=== PATIENT | male | born 1975 | race African-American/Black ===

== ENCOUNTER 2022-03-28 21:35 | Inpatient (IN) ==
[2022-03-28] MEDS ORDERED: ONDANSETRON 4 MG/2 ML VIAL ONE ×2 (21:50→21:57)
[2022-03-28] MEDS ORDERED: MORPHINE 2 MG/1 ML SYRINGE ONE (21:57)
[2022-03-28] MEDS ORDERED: ASPIRIN 325 MG TABLET ONE (21:57)
[2022-03-28] MEDS ORDERED: HEPARIN 5,000 UNIT/1 ML VIAL ONE ×2 (21:58→22:42)
[2022-03-28] MEDS ORDERED: TICAGRELOR 90 MG TABLET ONE (21:58)
[2022-03-28] MEDS ORDERED: HEPARIN 5,000 UNIT/1 ML VIAL IV ONE (21:59)
[2022-03-28] MEDS ORDERED: ASPIRIN 325 MG TABLET PO STA (21:59)
[2022-03-28] MEDS ORDERED: MORPHINE 2 MG/1 ML SYRINGE IV STA (21:59)
[2022-03-28] MEDS ORDERED: NITROGLYCERIN 2% OINT 1 INCH/GM PACK TOP STA (21:59)
[2022-03-28] MEDS ORDERED: TICAGRELOR 90 MG TABLET PO STA ×2 (21:59→23:25)
[2022-03-28] MEDS ORDERED: NITROGLYCERIN 2% OINT 1 INCH/GM PACK TOP ONE (21:59)
[2022-03-28] MEDS ORDERED: ONDANSETRON 4 MG/2 ML VIAL IV STA (21:59)
[2022-03-28] MEDS ORDERED: SODIUM CHLORIDE 0.9% 2,000 ML IV STA (21:59)
[2022-03-28 22:03] LABS: Basophils # 0.1 10*3/uL (0.0-0.2); Basophils % 0.7 % (0.0-0.8); Eosinophils # 0.3 10*3/uL (0.0-0.87); Eosinophils % 4.4 % (0.00-10.9); Hemoglobin 12.3 GM/DL (14.0-18.0); Immature Granulocytes % 0.3 %; Immature Granulocytes Absolute 0.02 #; Lymphocytes # 3.6 10*3/uL (1.4-4.0); Mean Corpuscular HGB Conc 33.2 GM/DL (32-36); Mean Corpuscular Volume 91.1 FL (87-102); Mean Platelet Volume 9.8 FL (9.6-12.0); Monocytes # 0.9 10*3/uL (0.11-0.8); Monocytes % 13.8 % (1.7-12.7); Neutrophils % 28.8 % (38.7-73.9); Platelet Count 292 T/CUMM (130-400); Red Blood Count 4.06 MC/CUMM (3.8-5.5); Red Cell Distribution Width 13.8 % (9.3-17.3); White Blood Count 6.8 T/CUMM (4-12)
[2022-03-28 22:23] LABS: Albumin 3.7 G/DL (3.4-5.0); Bilirubin,Total 0.5 MG/DL (0.20-1.00); Osmolality,Calculated 281.7 MOS/KG (273-304); Potassium 4.2 MMOL/L (3.5-5.1); Total Protein 7.1 G/DL (6.4-8.2)
[2022-03-28] MEDS ORDERED: HEPARIN/NACL 0.9% 2 UNITS/ML 2,000 UNIT/1,000 ML BAG IV ONE (22:25)
[2022-03-28 22:31] LABS: INR 0.9; PT Patient Result 10.3 SECS (10.5-12.0)
[2022-03-28] MEDS ORDERED: fentaNYL 100 MCG/2 ML VIAL ONE (22:32)
[2022-03-28] MEDS ORDERED: MIDAZOLAM 2 MG/2 ML VIAL ONE (22:32)
[2022-03-28 22:35] LABS: Atypical Lymphocytes 2+; Eosinophils 6 % (0-10); Lymphocytes 56 % (20-55); Platelet Estimate Normal; Total Cells Counted 100
[2022-03-28] MEDS ORDERED: GLUCAGON 1 MG VIAL IM PRN ×2 (23:24→23:28)
[2022-03-28] MEDS ORDERED: ATORVASTATIN 40 MG TABLET PO STA (23:27)
[2022-03-28] MEDS ORDERED: DEXTROSE 10% 250 ML BAG IV PRN (23:28)
[2022-03-28] MEDS ORDERED: DEXTROSE 50% 25 GM/50 ML VIAL IV PRN (23:28)
[2022-03-28] MEDS ORDERED: NITROGLYCERIN SL 0.4 MG TABLET SL PRN (23:41)
[2022-03-29] MEDS: ATORVASTATIN 80 MG TABLET PO SCH ×2 (01:11→09:00)
[2022-03-29 05:15] LABS: Basophils % 0.4 % (0.0-0.8); Eosinophils # 0.1 10*3/uL (0.0-0.87); Eosinophils % 1.9 % (0.00-10.9); Hematocrit 33.5 VOL% (42.0-52.0); Hemoglobin 11.3 GM/DL (14.0-18.0); Immature Granulocytes % 0.3 %; Immature Granulocytes Absolute 0.02 #; Lymphocytes % 29.2 % (21.2-54.2); Mean Corpuscular HGB Conc 33.7 GM/DL (32-36); Mean Corpuscular Volume 90.1 FL (87-102); Mean Platelet Volume 9.4 FL (9.6-12.0); Monocytes # 0.6 10*3/uL (0.11-0.8); Monocytes % 9.4 % (1.7-12.7); Neutrophils % 58.8 % (38.7-73.9); Platelet Count 227 T/CUMM (130-400); Red Blood Count 3.72 MC/CUMM (3.8-5.5); Red Cell Distribution Width 13.6 % (9.3-17.3); White Blood Count 6.8 T/CUMM (4-12)
[2022-03-29 05:37] LABS: Calcium 8.9 MG/DL (8.5-10.1); Osmolality,Calculated 280.4 MOS/KG (273-304); Potassium 3.9 MMOL/L (3.5-5.1); Risk Ratio 1.96
[2022-03-29] MEDS: INSULIN REGULAR 100 UNIT/ML SUBCUT SCH ×4 (08:37→20:30)
[2022-03-29] MEDS: TICAGRELOR 90 MG TABLET PO SCH (09:00)
[2022-03-29] MEDS ORDERED: VALSARTAN 80 MG TABLET PO SCH (09:00)
[2022-03-29] MEDS: ASPIRIN EC 81 MG TABLET PO SCH (09:00)
[2022-03-29] MEDS: VALSARTAN 80 MG TABLET PO SCH (09:00)
[2022-03-29] MEDS: carvediloL 6.25 MG TABLET PO SCH ×2 (09:00→20:22)
[2022-03-29] MEDS ORDERED: PROMETHAZINE 25 MG TABLET PO PRN (10:18)
[2022-03-29] MEDS ORDERED: MAGNESIUM SULF RIDER 4 GM/100 ML PREMIX IV PRN (10:18)
[2022-03-29] MEDS ORDERED: hydrALAZINE 20 MG/1 ML VIAL IV PRN (10:18)
[2022-03-29] MEDS ORDERED: SIMETHICONE CHEW 125 MG TABLET PO PRN (10:18)
[2022-03-29] MEDS ORDERED: NICOTINE 21 MG/24 HR PATCH TRANSDERM PRN (10:18)
[2022-03-29] MEDS ORDERED: DOCUSATE SODIUM 100 MG CAPSULE PO PRN (10:18)
[2022-03-29] MEDS ORDERED: ACETAMINOPHEN 325 MG TABLET PO PRN (10:18)
[2022-03-29] MEDS ORDERED: guaiFENesin/DM ER 600-30 MG TABLET PO PRN (10:18)
[2022-03-29] MEDS ORDERED: ALUMINUM/MAGNES/SIMETH MAX STR 30 ML UDCUP PO PRN (10:18)
[2022-03-29] MEDS ORDERED: MAGNESIUM SULF RIDER 2 GM/50 ML PREMIX IV PRN (10:18)
[2022-03-29] MEDS ORDERED: ONDANSETRON 4 MG/2 ML VIAL IV PRN (10:18)
[2022-03-29] MEDS ORDERED: ZALEPLON 5 MG CAPSULE PO PRN (10:18)
[2022-03-29] MEDS ORDERED: diphenhydrAMINE CAP 25 MG CAPSULE PO PRN (10:18)
[2022-03-29 12:57] LABS: Barbiturates Screen,Urine Negative (Negative); Benzodiazepines Screen,Urine Positive (Negative); Cannabinoid Screen,Urine Positive (Negative); Opiate Screen,Urine Positive (Negative); Phencyclidine Screen,Urine Negative (Negative)
[2022-03-29] MEDS: GLIMEPIRIDE 4 MG TABLET PO SCH (17:59)
[2022-03-30 04:54] LABS: Basophils % 0.3 % (0.0-0.8); Eosinophils # 0.1 10*3/uL (0.0-0.87); Eosinophils % 1.9 % (0.00-10.9); Hematocrit 34.2 VOL% (42.0-52.0); Hemoglobin 11.4 GM/DL (14.0-18.0); Immature Granulocytes % 0.3 %; Immature Granulocytes Absolute 0.02 #; Lymphocytes # 2.6 10*3/uL (1.4-4.0); Lymphocytes % 40.2 % (21.2-54.2); Mean Corpuscular HGB Conc 33.3 GM/DL (32-36); Mean Corpuscular Volume 89.8 FL (87-102); Mean Platelet Volume 9.6 FL (9.6-12.0); Monocytes # 0.7 10*3/uL (0.11-0.8); Monocytes % 11.3 % (1.7-12.7); Platelet Count 247 T/CUMM (130-400); Red Blood Count 3.81 MC/CUMM (3.8-5.5); Red Cell Distribution Width 13.7 % (9.3-17.3); White Blood Count 6.5 T/CUMM (4-12)
[2022-03-30 05:15] LABS: Eosinophils 2 % (0-10); Lymphocytes 42 % (20-55); Platelet Estimate Adequate; Total Cells Counted 100
[2022-03-30 05:29] LABS: Alanine Aminotransferase 38 U/L (16-61); Albumin 3.1 G/DL (3.4-5.0); Alkaline Phosphatase 74 U/L (45-117); Aspartate Amino Transferase 44 U/L (0-37); Blood Urea Nitrogen 12 MG/DL (7-18); Calcium 8.5 MG/DL (8.5-10.1); Carbon Dioxide 25 MMOL/L (21-32); Chloride 106 MMOL/L (98-107); Glucose 118 MG/DL (74-106); Osmolality,Calculated 279.4 MOS/KG (273-304); Potassium 3.3 MMOL/L (3.5-5.1); Sodium 140 MMOL/L (136-145); Total Protein 6.7 G/DL (6.4-8.2)
[2022-03-30] MEDS: VALSARTAN 80 MG TABLET PO SCH (08:43)
[2022-03-30] MEDS: GLIMEPIRIDE 4 MG TABLET PO SCH ×2 (08:44→16:57)
[2022-03-30] MEDS: carvediloL 6.25 MG TABLET PO SCH ×2 (08:44→20:32)
[2022-03-30] MEDS: ATORVASTATIN 80 MG TABLET PO SCH (08:45)
[2022-03-30] MEDS: TICAGRELOR 90 MG TABLET PO SCH (08:46)
[2022-03-30] MEDS: ASPIRIN EC 81 MG TABLET PO SCH (08:46)
[2022-03-30] MEDS: PANTOPRAZOLE 40 MG TABLET PO SCH (08:47)
[2022-03-30] MEDS: INSULIN REGULAR 100 UNIT/ML SUBCUT SCH ×4 (09:33→20:33)
[2022-03-30] MEDS: POTASSIUM CHLORIDE 20 MEQ TABLET PO PRN ×3 (12:14→20:32)
[2022-03-31 04:08] VITALS: BP 163/80
[2022-03-31 05:23] LABS: Basophils % 0.5 % (0.0-0.8); Eosinophils # 0.2 10*3/uL (0.0-0.87); Eosinophils % 2.6 % (0.00-10.9); Hematocrit 35.6 VOL% (42.0-52.0); Hemoglobin 11.8 GM/DL (14.0-18.0); Immature Granulocytes % 0.3 %; Immature Granulocytes Absolute 0.02 #; Lymphocytes # 2.7 10*3/uL (1.4-4.0); Lymphocytes % 43.1 % (21.2-54.2); Mean Corpuscular HGB Conc 33.1 GM/DL (32-36); Mean Corpuscular Volume 91.3 FL (87-102); Mean Platelet Volume 9.7 FL (9.6-12.0); Monocytes # 0.7 10*3/uL (0.11-0.8); Monocytes % 11.4 % (1.7-12.7); Neutrophils % 42.1 % (38.7-73.9); Platelet Count 246 T/CUMM (130-400); Red Cell Distribution Width 13.4 % (9.3-17.3); White Blood Count 6.2 T/CUMM (4-12)
[2022-03-31 05:38] LABS: Albumin 3.5 G/DL (3.4-5.0); Bilirubin,Total 0.8 MG/DL (0.20-1.00); Osmolality,Calculated 275.7 MOS/KG (273-304); Potassium 3.8 MMOL/L (3.5-5.1); Total Protein 6.9 G/DL (6.4-8.2)
[2022-03-31 05:50] LABS: Eosinophils 2 % (0-10); Lymphocytes 43 % (20-55); Total Cells Counted 100
[2022-03-31 05:51] LABS: Platelet Estimate Normal
[2022-03-31] MEDS: INSULIN REGULAR 100 UNIT/ML SUBCUT SCH (08:42)
[2022-03-31] MEDS: GLIMEPIRIDE 4 MG TABLET PO SCH (08:43)
[2022-03-31] MEDS: VALSARTAN 80 MG TABLET PO SCH (08:43)
[2022-03-31] MEDS: carvediloL 6.25 MG TABLET PO SCH (08:43)
[2022-03-31] MEDS: ATORVASTATIN 80 MG TABLET PO SCH (08:43)
[2022-03-31] MEDS: ASPIRIN EC 81 MG TABLET PO SCH (08:43)
[2022-03-31] MEDS: PANTOPRAZOLE 40 MG TABLET PO SCH (08:44)
[2022-03-31] MEDS ORDERED: TICAGRELOR 90 MG TABLET PO SCH (09:00)
== END 2022-03-31 11:37 | disposition home or self-care (01) | DRG 247 ==
LOC: N.ED 21:35 → N.ICU 22:23 → N.EDINP 23:10 → N.ICU 23:41
PROVIDERS: ADMIT Internal Medicine Cardiovascular Disease; ATTEND Internal Medicine Cardiovascular Disease
PROC: CLCCHCL (ICD-10-PCS; 2022-03-28 23:15)